=== PATIENT | female | born 1960 | race Two or more races ===

== ENCOUNTER → 2016-09-05 | Outpatient (CLI) | payer BC ==
[~2016-09-05] VITALS: Ht 152.4 cm; Wt 80.7 kg
[~2016-09-05] MED LIST: SINCALIDE 1.61 MCG in IV NORMAL SALINE 50ML 30 ML IV ONE
--- NOTE | 2016-09-05 13:05 | RAD ---
Radionuclide hepatobiliary scan, 09/05/2016: History: Epigastric pain and nausea Following IV injection of 5.5 mCi of technetium 99m Choletec there was prompt uptake of the radionuclide from the blood stream by the liver. Activity is present in the bile ducts and gallbladder at 20 minutes. Initial imaging at one hour showed increasing activity in the gallbladder without extension into the small bowel. Following IV injection of 1.6 mcg of cholecystokinin additional imaging was performed. The gallbladder ejection fraction was calculated at 6%. Activity does extend into the small bowel following the cholecystokinin injection. IMPRESSION: 1. Patent cystic and common bile ducts. 2. Decreased gallbladder ejection fraction of 6%.
== END | disposition home or self-care (01) ==
LOC: NM 13:26
PROVIDERS: ATTEND Family Medicine
DX: R10.13 Epigastric pain (principal); R10.11 Right upper quadrant pain; R11.0 Nausea
CPT/HCPCS: 78226; 96374; 96375; A9537; J2805

== ENCOUNTER 2016-09-12 12:10 | Observation (INO) | payer BC ==
[2016-09-12] VITALS (10 sets, daily range): BP systolic 106–136; BP diastolic 52–95
[~2016-09-12] VITALS: Ht 154.9 cm; Wt 80.7 kg
[~2016-09-12 12:10] MED LIST changes: +ACET500T33 PO; +ALPR0.5T PO; +LIDOCAINE 2% 100 MG/5 ML DISP.SYRIN. ONE; +OMEP40CA5 PO; +PROPOFOL 20 ML IV ONE; +ROCURONIUM 50 MG/5 ML VIAL. ONE; -SINCALIDE 1.61 MCG in IV NORMAL SALINE 50ML 30 ML IV ONE; +SUCCINYLCHOLINE 200 MG/10 ML VIAL. ONE
[2016-09-12] MEDS ORDERED: FENTANYL PF 100 MCG/2 ML VIAL. ONE ×4 (12:18→14:51)
[2016-09-12] MEDS ORDERED: BUPIVACAINE-EPI 0.5%-1:200000 50 ML VIAL. ONE (12:43)
[2016-09-12] MEDS ORDERED: IOHEXOL 300 MG/ML 50 ML VIAL. ONE (12:43)
[2016-09-12] MEDS ORDERED: SURGICEL HEMOSTAT 4X8 EACH. ONE (12:44)
[2016-09-12 13:03] LABS: BASO # 0.1 x10^3/uL (0.0-0.2); BASO % 1 % (0-3); EOS % 3 % (0-3); HEMATOCRIT 45.5 % (36.0-47.0); HEMOGLOBIN 14.7 g/dL (12.0-15.5); LYMPH # 2.4 x10^3/uL (1.0-4.8); LYMPH % 27 % (24-48); MEAN CORPUSCULAR HEMOGLOBIN 30 pg (25-35); MEAN CORPUSCULAR HGB CONC 32 g/dL (31-37); MEAN CORPUSCULAR VOLUME 91 fL (79-100); MONO % 8 % (0-9); NEUT % 62 % (31-73); PLATELET COUNT 174 x10^3/uL (140-400); RED BLOOD COUNT 4.99 x10^6/uL (3.50-5.40); RED CELL DISTRIBUTION WIDTH 14.1 % (11.5-14.5); WHITE BLOOD COUNT 9.1 x10^3/uL (4.0-11.0)
[2016-09-12] MEDS: IV RINGERS,LACTATED 1000ML 1,000 ML IV SCH ×2 (13:08→18:18)
[2016-09-12 13:15] LABS: CALCIUM 9.3 mg/dL (8.5-10.1); CREATININE 0.6 mg/dL (0.6-1.0); POTASSIUM 4.4 mmol/L (3.5-5.1)
[2016-09-12 13:21] LABS: ALBUMIN/GLOBULIN RATIO 1.3 (1.0-1.7); TOTAL BILIRUBIN 0.5 mg/dL (0.2-1.0); TOTAL PROTEIN 7.2 g/dL (6.4-8.2)
[2016-09-12] MEDS ORDERED: DESFLURANE 31 TO 60 MINUTES IH ONE (13:22)
[2016-09-12] MEDS ORDERED: DEXAMETHASONE SOD PHOS 20 MG/5 ML VIAL. ONE (13:22)
[2016-09-12] MEDS: CEFAZOLIN 2GM PREMIX 50 ML IV PRN ×2 (13:23→18:19)
[2016-09-12] MEDS ORDERED: ONDANSETRON PF 4 MG/2 ML VIAL. ONE (13:33)
[2016-09-12] MEDS ORDERED: NEOSTIGMINE METHYLSULFATE 5 MG/5 ML SYRINGE. ONE (13:34)
[2016-09-12] MEDS ORDERED: GLYCOPYRROLATE 1 MG/5 ML VIAL. ONE (13:34)
--- NOTE | 2016-09-12 14:14 | RAD ---
Intraoperative cholangiogram, 09/12/2016: History: Cholecystectomy 5 spot films from surgery are presented for review. Contrast has been injected into the cystic duct remnant. 34 seconds of fluoroscopy time was utilized. There is good flow of contrast into the duodenum at the ampulla. The common bile duct is of normal caliber. No filling defect is seen in that duct to suggest a retained stone. The visualized intrahepatic ducts are unremarkable. No contrast extravasation is seen. IMPRESSION: No significant abnormality is detected.
[2016-09-12] MEDS ORDERED: DEXTROSE 50% 25 GM / 50ML DISP.SYRIN. IV PRN (14:15)
[2016-09-12] MEDS ORDERED: HYDROCODONE/APAP 5/325MG TABLET. PO PRN (14:15)
[2016-09-12] MEDS ORDERED: ONDANSETRON PF 4 MG/2 ML VIAL. IV PRN ×2 (14:15→15:00)
[2016-09-12] MEDS ORDERED: 0.9 % SODIUM CHLORIDE 10 ML DISP.SYRIN. IV PRN (14:15)
[2016-09-12] MEDS ORDERED: HYDROMORPHONE 2 MG/ML VIAL. IV PRN ×2 (14:15→15:00)
[2016-09-12] MEDS: IV 1/2 NORMAL SALINE 1,000 ML IV SCH (14:15)
--- NOTE | 2016-09-12 14:15 | PDOC4 ---
Operative Note Operative Note Operative Note: Preoperative Diagnosis: Biliary dyskinesia Postoperative Diagnosis: Same Procedure: Laparoscopic cholecystectomy with intraoperative cholangiogram Surgeons: Loi Social Science Manager: Alejandrina HORTON Anesthesia: Gen. Estimated Blood Loss: 50 mL Specimen: Gallbladder to pathology Drains: None Complications: None Indications: The patient is a 56-year-old female who is been experiencing recurrent upper abdominal pain. Her evaluation included a PIPIDA scan which showed a very low gallbladder ejection fraction of 6%. Surgical treatment was offered by means of a laparoscopic cholecystectomy. The risks of surgery were discussed which include bleeding, infection, bile duct injury, bile leak, pain, the potential for additional surgeries or procedures. The patient understands and would like to proceed. Description: The patient was taken to the operating room and laid supine on the operating table. General anesthesia was performed. The abdomen was prepped with ChloraPrep and draped in a standard surgical fashion. A small infraumbilical incision was made with a scalpel. The Veress needle was then inserted and a pneumoperitoneum was then created. A 5 mm trocar was then inserted and the laparoscope was introduced. In the upper midabdomen a 5 mm trocar was inserted and in the right upper quadrant two 2.3 mm mini lap graspers were inserted. The patient had marked fatty infiltration of the liver with hepatomegaly. The gallbladder was retracted cephalad. The cystic duct was dissected free from surrounding tissues. One clip was placed on the duct near the gallbladder junction. An opening was made in the duct and a cholangiocatheter placed within and secured with a clip. Using contrast dye and fluoroscopy an intraoperative cholangiogram was performed that appeared unremarkable. The clip and catheter were then withdrawn. Three clips were placed on the cystic duct and it was divided. The cystic artery was then identified, dissected free, doubly clipped and divided as well. The gallbladder was then mobilized away from the liver with cautery. The superior 5 millimeter trocar was exchanged for an 11 millimeter trocar. The gallbladder was then placed in an endoscopic bag and extracted at the superio trocar site. The fascia there was closed with an 0 Vicryl suture. All blood and irrigation fluid was suctioned and hemostasis was good. The remaining ports were removed and the pneumoperitoneum was relieved. The skin incisions were injected with half percent Marcaine with epinephrine, and all were closed using 4-0 Monocryl suture. Steri-Strips and dressings were then applied. The patient tolerated the procedure well and was sent to the recovery room in stable condition. At the end of the case all counts were correct. OMER BANERJEE MD Sep 12, 2016 14:15
[2016-09-12] MEDS ORDERED: ALPRAZOLAM 0.5 MG TABLET. PO PRN (14:30)
[2016-09-12] MEDS ORDERED: PROCHLORPERAZINE 10 MG/2 ML VIAL. ONE (14:33)
[2016-09-12] MEDS: FENTANYL PF 100 MCG/2 ML VIAL. IV PRN ×4 (14:33→15:07)
[2016-09-12] MEDS ORDERED: IV RINGERS,LACTATED 1000ML 1,000 ML IV SCH (14:52)
[2016-09-12] MEDS ORDERED: PROCHLORPERAZINE 10 MG/2 ML VIAL. IV PRN (15:00)
[2016-09-12] MEDS ORDERED: LIDOCAINE 1% 1 ML SYRINGE. ID PRN (15:00)
[2016-09-12] MEDS ORDERED: PANTOPRAZOLE 40 MG TABLET. PO SCH (15:00)
[2016-09-12] MEDS ORDERED: FENTANYL PF 100 MCG/2 ML VIAL. IV PRN (15:00)
[2016-09-12] MEDS: MORPHINE SULFATE 2 MG/ML DISP.SYRIN. IV PRN ×2 (15:02→15:18)
[2016-09-12] MEDS: HYDROCODONE/APAP 5/325MG TABLET. PO PRN (18:22)
[2016-09-12] MEDS ORDERED: INFLUENZA VAX SCREEN BY RX. MC PRN (18:45)
[2016-09-12] MEDS ORDERED: FLU VACC QUAD 2016-17 (36MOS+)/PF 0.5 ML SYRINGE. VAX IM ONE (19:00)
[2016-09-13] MEDS: HYDROCODONE/APAP 5/325MG TABLET. PO PRN ×2 (00:39→09:28)
[2016-09-13 03:18] VITALS: BP 108/54
[2016-09-13] MEDS: IV 1/2 NORMAL SALINE 1,000 ML IV SCH (03:35)
[2016-09-13 07:00] VITALS: BP 111/61
[2016-09-13] MEDS ORDERED: PANTOPRAZOLE 40 MG TABLET.DR. PO SCH (07:30)
--- NOTE | 2016-09-13 07:58 | DISCH ---
DISCHARGE INSTRUCTIONS Condition on Discharge Condition on Discharge: Stable Activity After Discharge Activity Instructions for Disc: Avoid exertion Other activity instructions: No lifting >20lbs for 2 weeks Diet after Discharge Diet after Discharge: Low Fat Wound Incision Care Other wound/incision instructi: eGnet shower Contacting the after DC Call your doctor for: If your condition worsens Follow-Up Follow up with: Dr Monsivais in 2 weeks QUINCY GALLAGHER MD Sep 13, 2016 7:58 am
--- NOTE | 2016-09-13 08:01 | PDOC3 ---
Discharge Summary* Date of Admission: Sep 12, 2016 Date of Discharge: Sep 13, 2016 Admitting Diagnosis Problems Medical Problems: (1) Biliary dyskinesia Status: Acute Final Diagnosis Problems Medical Problems: (1) Biliary dyskinesia Status: Acute CONSULTS None Procedures L/S Cholecystectomy Brief Hospital Course Ms. Pat is a 56 old female underwent L/S Cindy without problems and is D/C home in stable condition Disposition/Orders: D/C to Home CONDITION AT DISCHARGE: Stable Diet: other (Low fat) Scheduled Omeprazole (Omeprazole) 1 CAP PO DAILY (Reported) Scheduled PRN Acetaminophen (Tylenol Extra Strength) 1,000 MG PO PRN PRN PRN PAIN (Reported) Alprazolam (Xanax) 1 TAB PO PRN PRN PRN ANXIETY (Reported) FOLLOW UP APPOINTMENT: Dr Monsivais in 2 weeks Time Spent Total time spent with patient [] minutes for coordination of care, counseling, and education. QUINCY GALLAGHER MD Sep 13, 2016 8:01 am
[2016-09-13 11:00] VITALS: BP 108/49
--- NOTE | 2016-09-16 15:27 | PATHOLOGY ---
PATHOLOGY REPORT * * * * * * * * FINAL DIAGNOSIS: Gallbladder, laparoscopic cholecystectomy: - Cholelithiasis. - Chronic cholecystitis. COMMENT: There is no evidence of malignancy. (MICHELLEM:; d/t: 09/16/16) REPORT ELECTRONICALLY SIGNED BY: Rancho Fernandez M.D. DATE/TIME: 09/16/2016 15:26 * * * * * * * * GROSS PATHOLOGY: Received in formalin labeled "Lelo Pat, gallbladder and contents," is a 7.4 x 1.9 x 1.6 cm, previously punctured gallbladder with green-mckoy serosal surfaces. Opening the gallbladder reveals velvety and bile-stained mucosa and an average wall thickness of 0.1 cm. Calculi are present and no masses are noted grossly. Hand Screen Printer sections from the body and fundus are submitted along with the proximal margin in cassette A1. (KAH; 09/13/2016) INITIAL CPT CODE(S): A; 65756 Professional services performed [place] [facility] [place] [address] Technical services performed by [facility] at [address] [place] [address] [address], [place] [address]. SPECIMEN(S) RECEIVED: A.Gallbladder and contents CLINICAL HISTORY: Biliary dyskinesia PATIENT: LELO PAT I /AGE: 207/21/1960 (Age: 56) PATIENT #: [id number] ALT CASE #: SPECIMEN COLLECTION DATE: 09/12/2016 SPECIMEN RECEIVED DATE: 09/13/2016 [facility] - [address] [place] [address] - PHONE: [phone] * * * END OF REPORT * * *
== END 2016-09-13 12:25 | disposition home or self-care (01) ==
LOC: SURG 12:10 → 4 NORTH 14:43
PROVIDERS: ADMIT Surgery; ATTEND Surgery
DX: K82.8 Other specified diseases of gallbladder (principal); Z23 Encounter for immunization
CPT/HCPCS: 36415; 47563; 74300; 80053; 85027; 90471; 90686; C1769; C1782; G0378; G0379; J0330; J0690; J0780; J1100; J2270; J2704; J2710; J3010; J3490; J7030; Q9967; J2405